=== PATIENT | male | born 1935 | race Caucasian/White ===

== ENCOUNTER 2019-10-12 13:42 | Inpatient (IN) | payer MEDICARE, BC ==
[~2019-10-12] VITALS: Ht 172.7 cm; Wt 88.5 kg
[2019-10-12] MEDS ORDERED: LABETALOL 5MG/ML SYR 20 MG/4 ML SYRINGE IV ONE (14:00)
[2019-10-12 14:07] LABS: BASOPHILS % 0.6 % (0.0-2.0); EOSINOPHILS % 0.9 % (0.0-5.0); HEMATOCRIT. 48.2 % (42.0-52.0); HEMOGLOBIN. 16.3 g/dL (14.0-18.0); LYMPHOCYTES % 14.1 % (20.0-50.0); MEAN CORPUSCULAR HEMOGLOBIN 30.5 pg (28.0-32.0); MEAN CORPUSCULAR VOLUME 90.3 fL (80.0-94.0); MEAN PLATELET VOLUME 7.9 fl (7.4-10.4); MONOCYTES % 6.7 % (2.0-8.0); NEUTROPHILS % 77.7 % (40.0-76.0); PLATELET 240 x1000/uL (130-400); RED BLOOD CELL COUNT 5.34 mill/uL (4.7-6.1); RED CELL DISTRIBUTION WIDTH 13.4 % (11.6-14.6)
[2019-10-12 14:13] LABS: CHLORIDE 98 mEq/L (98-107)
[2019-10-12 14:16] LABS: PROTHROMBIN TIME 10.6 sec (9.6-11.0)
[2019-10-12 14:19] LABS: ETHANOL BLOOD < 10 mg/dL
[2019-10-12 14:22] LABS: LDL CHOLESTEROL 147 mg/dL (5-100)
[2019-10-12 14:58] LABS: CLARITY URINE CLEAR (CLEAR); COLOR URINE YELLOW (YELLOW); KETONES URINE NEGATIVE (NEGATIVE); LEUKOCYTE ESTERASE URINE NEGATIVE (NEGATIVE); NITRITE URINE NEGATIVE (NEGATIVE); OCCULT BLOOD URINE NEGATIVE (NEGATIVE); PH URINE 7.5 (4.5-8.0); PROTEIN URINE 3+ (NEGATIVE); UROBILINOGEN URINE 0.2 E.U./dL (0.2-1.0)
[2019-10-12] MEDS ORDERED: IOHEXOL-350 100 ML BOTTLE ONE (15:55)
[2019-10-12] MEDS ORDERED: ACETAMINOPHEN 325MG TABLET PO PRN (16:15)
[2019-10-12] MEDS ORDERED: ONDANSETRON HCL 4MG/2ML INJ IV PRN (16:15)
[2019-10-12] MEDS ORDERED: CLONIDINE 0.1MG TABLET PO PRN (16:15)
[2019-10-12] MEDS ORDERED: DIPHENHYDRAMINE 50MG/ML VIAL IV PRN (16:15)
[2019-10-12 16:58] LABS: *AMPHETAMINES SCREEN URINE NEGATIVE (NEGATIVE); *BARBITURATES SCREEN URINE NEGATIVE (NEGATIVE); *BENZODIAZEPINES SCREEN URINE NEGATIVE (NEGATIVE); *COCAINE SCREEN URINE NEGATIVE (NEGATIVE); METHADONE URINE SCREEN NEGATIVE (NEGATIVE); OPIATES URINE SCREEN NEGATIVE (NEGATIVE)
[2019-10-12 16:59] LABS: CANNABINOID URINE SCREEN NEGATIVE (NEGATIVE); PHENCYCLIDINE URINE SCREEN NEGATIVE (NEGATIVE)
[2019-10-12] MEDS ORDERED: ATORVASTATIN CALCIUM 40MG TABLET PO SCH (17:45)
[2019-10-12] MEDS ORDERED: ASPIRIN 81MG TABLET PO ONE (17:45)
[2019-10-12] MEDS: HYDRALAZINE 20MG/ML VIAL IV PRN (18:34)
[2019-10-12] MEDS: ENOXAPARIN 40MG/0.4ML SYR SUBCUT SCH (18:44)
[2019-10-12] MEDS: BLOOD SUGAR DIAGNOSTIC STRIP TEST SCH (22:05)
[2019-10-12] MEDS: INSULIN LISPRO (LOW DOSE) 100 UNITS/ML SUBCUT SCH (22:05)
[2019-10-12] MEDS ORDERED: DEXTROSE 50% WATER 50ML SYRINGE IV PRN (22:15)
[2019-10-12 23:30] VITALS: BP 121/79
[2019-10-13] VITALS (7 sets, daily range): BP systolic 121–193; BP diastolic 70–91
[2019-10-13] MEDS ORDERED: METO100T16 PO (01:00)
[2019-10-13] MEDS ORDERED: LISI-604 PO (01:00)
[2019-10-13] MEDS: INSULIN LISPRO (LOW DOSE) 100 UNITS/ML SUBCUT SCH ×4 (05:49→21:00)
[2019-10-13] MEDS: BLOOD SUGAR DIAGNOSTIC STRIP TEST SCH ×4 (05:49→21:00)
[2019-10-13 06:23] LABS: BASOPHILS % 0.5 % (0.0-2.0); EOSINOPHILS % 0.7 % (0.0-5.0); HEMATOCRIT. 42.2 % (42.0-52.0); HEMOGLOBIN. 14.4 g/dL (14.0-18.0); LYMPHOCYTES % 8.7 % (20.0-50.0); MEAN CORPUSCULAR HEMOGLOBIN 30.2 pg (28.0-32.0); MEAN CORPUSCULAR VOLUME 88.5 fL (80.0-94.0); MEAN PLATELET VOLUME 8.2 fl (7.4-10.4); MONOCYTES % 7.2 % (2.0-8.0); NEUTROPHILS % 82.9 % (40.0-76.0); PLATELET 204 x1000/uL (130-400); RED BLOOD CELL COUNT 4.77 mill/uL (4.7-6.1); RED CELL DISTRIBUTION WIDTH 13.2 % (11.6-14.6)
[2019-10-13 08:17] LABS: CHLORIDE 101 mEq/L (98-107)
[2019-10-13 08:24] LABS: LDL CHOLESTEROL 119 mg/dL (5-100)
[2019-10-13 08:26] LABS: HDL CHOLESTEROL 36 mg/dL (40-59)
[2019-10-13] MEDS: HYDRALAZINE 20MG/ML VIAL IV PRN (09:08)
[2019-10-13] MEDS ORDERED: LABETALOL 5MG/ML SYR 20 MG/4 ML SYRINGE IV SCH (12:00)
[2019-10-13] MEDS: ASPIRIN 81MG TABLET PO SCH (14:23)
[2019-10-13] MEDS: ENOXAPARIN 40MG/0.4ML SYR SUBCUT SCH (16:00)
[2019-10-13] MEDS: ATORVASTATIN CALCIUM 20MG TABLET PO SCH (22:16)
[2019-10-13] MEDS: LABETALOL 5MG/ML SYR 20 MG/4 ML SYRINGE IV PRN (22:18)
[2019-10-14 04:00] VITALS: BP 194/87
[2019-10-14] MEDS: BLOOD SUGAR DIAGNOSTIC STRIP TEST SCH ×4 (06:03→21:49)
[2019-10-14] MEDS: LABETALOL 5MG/ML SYR 20 MG/4 ML SYRINGE IV PRN ×3 (06:06→19:01)
[2019-10-14] MEDS: INSULIN LISPRO (LOW DOSE) 100 UNITS/ML SUBCUT SCH ×4 (07:15→21:00)
[2019-10-14 07:30] LABS: CHLORIDE 98 mEq/L (98-107)
[2019-10-14 08:00] VITALS: BP 170/86
[2019-10-14] MEDS: ASPIRIN 81MG TABLET PO SCH (08:19)
[2019-10-14 10:35] LABS: HEMATOCRIT. 41.3 % (42.0-52.0); HEMOGLOBIN. 13.9 g/dL (14.0-18.0); MEAN CORPUSCULAR HEMOGLOBIN 29.9 pg (28.0-32.0); MEAN CORPUSCULAR VOLUME 88.5 fL (80.0-94.0); MEAN PLATELET VOLUME 8.5 fl (7.4-10.4); PLATELET 200 x1000/uL (130-400); RED BLOOD CELL COUNT 4.67 mill/uL (4.7-6.1); RED CELL DISTRIBUTION WIDTH 13.5 % (11.6-14.6)
[2019-10-14 12:00] VITALS: BP 185/89
[2019-10-14 12:07] LABS: PLATELET ESTIMATE NORMAL
[2019-10-14] MEDS ORDERED: ASPI-1160 PO (12:32)
[2019-10-14] MEDS ORDERED: ATOR20TA PO (12:32)
[2019-10-14 16:00] VITALS: BP 179/80
[2019-10-14] MEDS: ENOXAPARIN 40MG/0.4ML SYR SUBCUT SCH ×2 (16:00→16:37)
[2019-10-14] MEDS: LISINOPRIL 20MG TABLET PO SCH (16:37)
[2019-10-14] MEDS: METOPROLOL TARTRATE 50MG TABLET PO SCH ×2 (16:37→21:47)
[2019-10-14 20:00] VITALS: BP 181/79
[2019-10-14] MEDS ORDERED: METOPROLOL TARTRATE 50MG TABLET PO SCH (21:00)
[2019-10-14] MEDS: ATORVASTATIN CALCIUM 20MG TABLET PO SCH (21:47)
[2019-10-15] VITALS (8 sets, daily range): BP systolic 115–198; BP diastolic 67–90
[2019-10-15] MEDS: LABETALOL 5MG/ML SYR 20 MG/4 ML SYRINGE IV PRN ×2 (04:25→17:14)
[2019-10-15] MEDS: BLOOD SUGAR DIAGNOSTIC STRIP TEST SCH ×4 (07:11→21:00)
[2019-10-15] MEDS: INSULIN LISPRO (LOW DOSE) 100 UNITS/ML SUBCUT SCH ×4 (07:11→21:00)
[2019-10-15] MEDS: LISINOPRIL 20MG TABLET PO SCH ×2 (09:45→17:14)
[2019-10-15] MEDS: METOPROLOL TARTRATE 50MG TABLET PO SCH ×2 (09:45→22:04)
[2019-10-15] MEDS: ASPIRIN 81MG TABLET PO SCH (09:45)
[2019-10-15] MEDS ORDERED: AMLODIPINE 10MG TABLET PO SCH (11:00)
[2019-10-15] MEDS: SPIRONOLACTONE 25MG TABLET PO SCH (11:30)
[2019-10-15] MEDS: ENOXAPARIN 40MG/0.4ML SYR SUBCUT SCH (16:00)
[2019-10-15] MEDS ORDERED: NIFEDIPINE XL 30MG TAB PO NR (18:00)
[2019-10-15] MEDS: ATORVASTATIN CALCIUM 20MG TABLET PO SCH (22:03)
[2019-10-16] VITALS: BP 180/89
[2019-10-16 04:00] VITALS: BP 178/79
[2019-10-16] MEDS: LABETALOL 5MG/ML SYR 20 MG/4 ML SYRINGE IV PRN ×2 (04:58→23:53)
[2019-10-16] MEDS ORDERED: NIFEDIPINE XL 30MG TAB PO SCH ×2 (06:00→13:15)
[2019-10-16] MEDS: INSULIN LISPRO (LOW DOSE) 100 UNITS/ML SUBCUT SCH ×2 (06:34→12:15)
[2019-10-16] MEDS: BLOOD SUGAR DIAGNOSTIC STRIP TEST SCH ×2 (06:34→12:33)
[2019-10-16 08:00] VITALS: BP 163/87
[2019-10-16] MEDS: ASPIRIN 81MG TABLET PO SCH (08:00)
[2019-10-16] MEDS: SPIRONOLACTONE 25MG TABLET PO SCH (08:00)
[2019-10-16] MEDS: LISINOPRIL 20MG TABLET PO SCH ×2 (08:01→18:31)
[2019-10-16] MEDS: METOPROLOL TARTRATE 50MG TABLET PO SCH (08:01)
[2019-10-16 12:00] VITALS: BP 161/69
[2019-10-16 16:00] VITALS: BP 152/61
[2019-10-16] MEDS: ENOXAPARIN 40MG/0.4ML SYR SUBCUT SCH (16:00)
[2019-10-16 20:02] VITALS: BP 159/71
[2019-10-16] MEDS: ATORVASTATIN CALCIUM 20MG TABLET PO SCH (20:10)
[2019-10-16] MEDS ORDERED: ATENOLOL 50 MG TABLET PO SCH (21:00)
[2019-10-17] VITALS (7 sets, daily range): BP systolic 139–177; BP diastolic 52–81
[2019-10-17 07:03] LABS: CHLORIDE 103 mEq/L (98-107)
[2019-10-17 07:11] LABS: BASOPHILS % 0.5 % (0.0-2.0); EOSINOPHILS % 1.8 % (0.0-5.0); HEMATOCRIT. 42.1 % (42.0-52.0); HEMOGLOBIN. 14.3 g/dL (14.0-18.0); LYMPHOCYTES % 10.2 % (20.0-50.0); MEAN CORPUSCULAR VOLUME 88.4 fL (80.0-94.0); MEAN PLATELET VOLUME 8.2 fl (7.4-10.4); MONOCYTES % 7.8 % (2.0-8.0); NEUTROPHILS % 79.7 % (40.0-76.0); PLATELET 208 x1000/uL (130-400); RED BLOOD CELL COUNT 4.76 mill/uL (4.7-6.1); RED CELL DISTRIBUTION WIDTH 13.6 % (11.6-14.6)
[2019-10-17] MEDS: ASPIRIN 81MG TABLET PO SCH (08:41)
[2019-10-17] MEDS: SPIRONOLACTONE 25MG TABLET PO SCH (08:41)
[2019-10-17] MEDS: LISINOPRIL 20MG TABLET PO SCH (08:41)
[2019-10-17] MEDS ORDERED: AMLODIPINE 10MG TABLET PO SCH (09:00)
[2019-10-17] MEDS ORDERED: AMLO10TA80 PO (11:24)
[2019-10-17] MEDS ORDERED: SPIR25TA PO (11:24)
[2019-10-17] MEDS ORDERED: ATEN50TA PO (11:24)
[2019-10-17] MEDS ORDERED: HYDRALAZINE 20MG/ML VIAL IV PRN (11:30)
[2019-10-17] MEDS ORDERED: LISI-604 PO (12:35)
== END 2019-10-17 14:00 | disposition home or self-care (01) | DRG 78 ==
LOC: ER 13:59 → 5WST 16:02 → ENRESERV 22:29 → 5WST 10-13 21:08
PROVIDERS: ADMIT Internal Medicine; ATTEND Internal Medicine
PROC: 4A00X4Z Measurement of Central Nervous Electrical Activity, External Approach (ICD-10-PCS; principal; 2019-10-14)
DX: I67.4 Hypertensive encephalopathy (principal); G45.9 Transient cerebral ischemic attack, unspecified; I16.1 Hypertensive emergency; E87.1 Hypo-osmolality and hyponatremia; E78.5 Hyperlipidemia, unspecified; D72.829 Elevated white blood cell count, unspecified; D72.810 Lymphocytopenia; D64.9 Anemia, unspecified; E78.00 Pure hypercholesterolemia, unspecified; E87.6 Hypokalemia; E83.39 Other disorders of phosphorus metabolism; R26.9 Unspecified abnormalities of gait and mobility; R73.9 Hyperglycemia, unspecified; I67.1 Cerebral aneurysm, nonruptured; I11.9 Hypertensive heart disease without heart failure; Z96.642 Presence of left artificial hip joint; M16.12 Unilateral primary osteoarthritis, left hip; Z82.49 Family history of ischemic heart disease and other diseases of the circulatory system; Z85.46 Personal history of malignant neoplasm of prostate; Z90.79 Acquired absence of other genital organ(s); Z79.899 Other long term (current) drug therapy
CPT/HCPCS: 36415; 70496; 70551; 71045; 76770; 80048; 80053; 80061; 80305; 80320; 81003; 82570; 82962; 83036; 83721; 83735; 83935; 84100; 84156; 84300; 84443; 84484; 84550; 85025; 92610; 93005; 93306; 93880; 93970; 96374; 97116; 97162; 97166; 97530; 97535; 99291; J0360; J1650; J3490; Q9967; G0480